=== PATIENT | male | born 1955 | race Caucasian/White ===

== ENCOUNTER 2017-12-03 17:00 | Outpatient (POV) ==
[2015-02-20 16:13] VITALS: BMI 36.3
== END 2017-12-03 18:00 ==
LOC: OUTPT 17:00
PROVIDERS: ATTEND Otolaryngology
DX: H91.90 Unspecified hearing loss, unspecified ear (principal)

== ENCOUNTER 2018-11-03 12:52 | Inpatient (IN) ==
[2018-11-03] MEDS ORDERED: NITROSTAT SL PRN (13:35)
[2018-11-03] MEDS ORDERED: ATROPINE SULFATE PFS IVP PRN (13:35)
[2018-11-03] MEDS ORDERED: VISTARIL INJ IM PRN (13:35)
[2018-11-03] MEDS ORDERED: TYLENOL PO PRN (13:35)
[2018-11-03] MEDS ORDERED: DECADRON 4 MG/ML SDV IM STA (13:40)
[2018-11-03] MEDS: XOPENEX 1.25 MG NEB SCH ×2 (14:02→19:30)
[2018-11-03] MEDS: ZITHROMAX PO SCH (14:22)
[2018-11-03] MEDS: SODIUM CHLORIDE 1,000 ML IV SCH (14:23)
[2018-11-03] MEDS: ROCEPHIN 1 GM in SODIUM CHLORIDE 50 ML IV SCH (14:24)
[2018-11-03 14:25] VITALS: BMI 34.7
[2018-11-03] MEDS: COREG PO SCH (17:17)
[2018-11-03] MEDS: GLUCOPHAGE PO SCH (17:18)
[2018-11-03] MEDS: HUMULIN R SUBCUT PRN (17:18)
[2018-11-03] MEDS: NEURONTIN PO SCH (20:33)
[2018-11-03] MEDS: LIPITOR PO SCH (20:33)
[2018-11-03] MEDS: LEVEMIR SUBCUT SCH (20:33)
[2018-11-03] MEDS: PROSCAR PO SCH (20:33)
[2018-11-03] MEDS: LEXAPRO PO SCH (20:33)
[2018-11-03] MEDS ORDERED: NON-FORMULARY MEDICATION (Metformin Hcl [Metformin Hcl] 1,000 MG) PO SCH (21:00)
[2018-11-04] MEDS: SODIUM CHLORIDE 1,000 ML IV SCH ×2 (03:37→19:08)
[2018-11-04] MEDS: XOPENEX 1.25 MG NEB SCH ×3 (04:50→20:24)
[2018-11-04] MEDS: SYNTHROID PO SCH (06:21)
[2018-11-04] MEDS: PROTONIX PO SCH (06:21)
[2018-11-04] MEDS: HUMULIN R SUBCUT PRN ×3 (06:23→17:11)
[2018-11-04] MEDS ORDERED: ASPIRIN EC PO SCH (08:00)
[2018-11-04] MEDS ORDERED: DECADRON 4 MG/ML SDV IM STA (08:07)
[2018-11-04] MEDS ORDERED: NON-FORMULARY MEDICATION (Lansoprazole [Prevacid] 30 MG) PO SCH (09:00)
[2018-11-04] MEDS ORDERED: VIT K1 PO SCH (09:00)
[2018-11-04] MEDS ORDERED: [UNRECOGNIZED DRUG - OTHER] PO SCH (09:00)
[2018-11-04] MEDS ORDERED: VITAMIN D3 PO SCH (09:00)
[2018-11-04] MEDS ORDERED: NON-FORMULARY MEDICATION (Multivit-Min/Fa/Lycopene/Lut [Centrum Silver Tablet] 1 TAB) PO SCH (09:00)
[2018-11-04] MEDS ORDERED: CALCIUM CARBONATE PO SCH (09:00)
[2018-11-04] MEDS ORDERED: CALCIUM CARB PO SCH (09:00)
[2018-11-04] MEDS ORDERED: VITAMIN D3 T PO SCH (09:00)
[2018-11-04] MEDS ORDERED: NON-FORMULARY MEDICATION (Duloxetine Hcl [Cymbalta] 60 MG) PO SCH (09:00)
--- NOTE | 2018-11-04 09:09 | PCM.PROG ---
Attending Provider: ATTENDING PROVIDER: Dr. LAMIN ASCENCIO DATE OF SERVICE: 11/04/18 SUBJECTIVE: This 62 year old WHITE/ M was hospitalized 11/03/18 with acute pneumonitis and flu type of syndrome with dehydration. He has continued to improve since yesterday. Hydration is better. Influenza A and B are negative. Chest x-ray negative. REVIEW OF SYSTEMS: CONSTITUTIONAL: No night sweats. No fatigue, malaise, lethargy. No fever or chills. HEENT: Eyes: No visual changes. No eye pain. No eye discharge. ENT: No runny nose. No epistaxis. No sinus pain. No odynophagia. No congestion. RESPIRATORY: Laryngitis type of symptoms with cough, no congestion. No hemoptysis. No shortness of breath. CARDIOVASCULAR: No angina symptoms. No CHF symptoms. No atypical chest pain for CAD. No palpitations. No orthopnea.. GASTROINTESTINAL: No abdominal pain. No nausea or vomiting. No diarrhea or constipation. No hematemesis. No hematochezia. GENITOURINARY: No urgency. No frequency. No dysuria. No hematuria. No obstructive symptoms. No discharge. No pain. No significant abnormal bleeding. MUSCULOSKELETAL: No musculoskeletal pain; no joint swelling. NEUROLOGICAL: Awake, alert, oriented to time, place and person. No headache. No neck pain. No syncope. No seizures. No dizziness. PSYCHIATRIC: Not anxious. No depression. No suicidal thoughts. No homicidal thoughts. SKIN: No rash. No lesions. No wounds. ENDOCRINE: No unexplained weight loss. No weight gain. HEMATOLOGIC/LYMPHATIC: No anemia. No purpura. No petechiae. No prolonged or excessive bleeding. No palpable lymph nodes. PHYSICAL EXAMINATION: GENERAL: The patient is awake, alert and oriented to time place and person, sitting in bed in no distress. VITAL SIGNS: Temperature 97.4 F, Pulse 78, Respiratory Rate 22, BP 144/87, Pulse Ox 95% HEENT: Head normocephalic, atraumatic. Eyes: Extraocular muscles are intact. Pupils are equal, round and reactive to light and accommodation. Ears: No lesions. Nose appeared normal. Throat: No exudate or erythema. NECK: Supple. No JVD, no carotid bruit. No lymphadenopathy or thyromegaly. LUNGS: Decreased breath sounds. Clear to auscultation. Percussion note normal. Chest symmetrical. HEART: S1, S2, no S3. No murmurs. No cyanosis or clubbing. No ascites. Pulses: Dorsalis pedis and posterior tibial pulses +1 to +2 both sides. ABDOMEN: Soft. Non-tender. Bowel sounds active. No CVA tenderness. No mass felt. EXTREMITIES: No edema. Full range of motion of all extremities, equal. NEUROLOGIC: No focal deficit. Cranial nerves II through XII are grossly intact. No headache, no double vision or headache. SKIN: Warm and dry. Intact. Turgor-normal. LYMPHATIC: No palpable lymph nodes/no lymphedema. MUSCULOSKELETAL: Normal joints with no swelling. Muscle tone is normal. LAB REVIEW: 11/04/18 05:11 11/04/18 05:11 11/04/18 05:11: Sodium 135.6, Potassium 4.26, Chloride 97.1 L, Carbon Dioxide 29.0, Anion Gap 13.76, BUN 15.7, Creatinine 0.69, Estimated GFR (MDRD) 116.00, BUN/Creatinine Ratio 22.75, Glucose 271.1 H, Calcium 9.26, Total Bilirubin 0.38 , AST 24.3, ALT 23.5, Alkaline Phosphatase 58.1, Total Protein 6.91, Albumin 3.96, Globulin 2.95, Albumin/Globulin Ratio 1.34 11/04/18 05:11: WBC 8.42, RBC 4.38 L, Hgb 13.4 L, Hct 39.2 L, MCV 89.5, MCH 30.6 , MCHC 34.2, RDW Coeff of [place] 11.7, Plt Count 283, Immature Gran % (Auto) 1.4, Neut % (Auto) 65.5, Lymph % (Auto) 22.3, Wheeler % (Auto) 9.4, Eos % (Auto) 0.7, Baso % (Auto) 0.7, Immature Gran # (Auto) 0.1, Neut # (Auto) 5.5, Lymph # (Auto ) 1.9, [place] # (Auto) 0.8, Eos # (Auto) 0.1, Baso # (Auto) 0.1 11/03/18 21:51: Total Creatine Kinase 85.5, Troponin I < 0.012 11/03/18 17:20: Urine Color Yellow, Urine Clarity Clear, Urine pH 6.0, Ur Specific Ponce 1.015, Urine Protein Trace, Urine Glucose (UA) 2+, Urine Ketones Negative, Urine Blood Negative, Urine Nitrite Negative, Urine Bilirubin Negative, Urine Urobilinogen 0.2, Ur Leukocyte Esterase Negative, Ur Squamous Epith Cells Not present, Urine Mucus Trace 11/03/18 13:50: Total Creatine Kinase 85.2, Troponin I < 0.012 11/03/18 13:50: Sodium 137.0, Potassium 4.34, Chloride 96.6 L, Carbon Dioxide 29.3, Anion Gap 15.44, BUN 16.9, Creatinine 0.85, Estimated GFR (MDRD) 91.00, BUN/Creatinine Ratio 19.88, Glucose 286.9 H, Calcium 9.42, Total Bilirubin 0.47 , AST 18.9, ALT 24.8, Alkaline Phosphatase 66.0, Total Protein 7.04, Albumin 4.12, Globulin 2.92, Albumin/Globulin Ratio 1.41 11/03/18 13:50: WBC 9.17, RBC 4.63 L, Hgb 14.3, Hct 41.6 L, MCV 89.8, MCH 30.9, MCHC 34.4, RDW Coeff of [place] 11.9, Plt Count 284, Immature Gran % (Auto) 1.1, Neut % (Auto) 62.6, Lymph % (Auto) 20.2, Wheeler % (Auto) 11.9 H, Eos % (Auto) 3.5 , Baso % (Auto) 0.7, Immature Gran # (Auto) 0.1, Neut # (Auto) 5.8, Lymph # ( Auto) 1.9, Wheeler # (Auto) 1.1, Eos # (Auto) 0.3, Baso # (Auto) 0.1 11/03/18 13:45: Influ A Molecular Assay Negative by naat, Influ B Molecular Assay Negative by naat ASSESSMENT: Please see below. 1. Flu syndrome 2. Bronchitis and Laryngitis type of symptoms. 3. Pleuritic pain right sided, cardiac markers are negative and telemetry showed sinus rhythm PLAN: 1. 1cc Decadron 2. Continue antibiotics 3. Education carried out about diabetes. Plan and coordination of the patient's care discussed in the presence of Film Projector Operator and nurse. SCRIBED BY: LESLYE SHEPHERD, Rehabilitation Services Aide scribed while in presence of service performed by Dr. LAMIN ASCENCIO on 11/04/18 ([id number])
[2018-11-04] MEDS: ROCEPHIN 1 GM in SODIUM CHLORIDE 50 ML IV SCH (09:29)
[2018-11-04] MEDS: CALCIUM 500 + VIT D 200 MG TABLET PO SCH (09:30)
[2018-11-04] MEDS: CYMBALTA PO SCH (09:31)
[2018-11-04] MEDS: MULTIVITAMIN TABLET PO SCH (09:31)
[2018-11-04] MEDS: ZITHROMAX PO SCH (09:32)
[2018-11-04] MEDS: ASPIRIN EC PO SCH (09:32)
[2018-11-04] MEDS: GLUCOPHAGE PO SCH ×2 (09:32→17:10)
[2018-11-04] MEDS: COREG PO SCH ×2 (09:33→17:11)
[2018-11-04] MEDS: LEVEMIR SUBCUT SCH ×2 (09:33→21:23)
--- NOTE | 2018-11-04 10:15 | DI ---
Exam: Two views of the chest. Comparison: 02/20/2015. Reason for exam: Short of air. FINDINGS: No pneumothorax, pleural effusion, or focal consolidation. The cardiac silhouette is not enlarged. The imaged osseous structures appear grossly unremarkable without acute fracture. Impression: No acute cardiopulmonary process.
--- NOTE | 2018-11-04 11:19 | HP ---
DATE OF SERVICE: 11/03/18 REASON FOR HOSPITALIZATION/HISTORY OF PRESENT ILLNESS: The patient is complaining of nasal congestion/coughing. He is taking Keflex and Prednisone with no improvement. Throat is swelling, fever, nauseated and clammy. PAST MEDICAL HISTORY: Sleep apnea Hypothyroidism Osteoporosis Skin cancer Fatty Liver Sleep Apnea Dyslipidemia Hypertension DJD spine Diabetes Mellitus PAST SURGICAL HISTORY: Back surgeries one in [place] and one in [place] REVIEW OF SYSTEMS: CONSTITUTIONAL: Fever, Fatigue. HEENT: No sinus drainage, no sore throat. RESPIRATORY: Cough, no congestion. CARDIOVASCULAR: Atypical chest pain for coronary artery disease. No angina, CHF symptoms, palpitations or shortness of breath. GASTROINTESTINAL: No melena or abdominal pain. No GERD. Nausea GENITOURINARY: No hematuria, no prostatism, no polyuria. WOUND NURSE: No blackout, Dizziness, no headache, no double vision. MUSCULOSKELETAL: Osteoarthritis pain, no joint swelling. ENDOCRINE: Weight loss of 14 pounds, no weight gain. SKIN: Not dry, no rash. PSYCHIATRIC: Not anxious, no depression, no suicidal thoughts, no homicidal thoughts. SOCIAL HISTORY: Marital Status:. Alcohol Usage: No. Tobacco Usage: No. FAMILY HISTORY: Father alive 83, hypertension and CAD Mother alive 82, hypertension and diabetes mellitus Brother one accident Sister one healthy MEDICATIONS: Levothyroxine 0.1mg daily Prevacid 30mg PO daily Vitamins PO daily Metformin 1000mg Po twice a day Citracal PO daily Calcium with vitamin D daily Neurontin 300mg twice a day Cymbalta 60mg PO daily Finasteride 5mg PO daily Levemir 90/60mg twice a day Coreg 6.25mg PO twice a day Aspirin 81mg PO daily Lipitor 20mg PO daily Lexapro 10mg PO daily Trulicity 0.75mg one dose weekly, Friday ALLERGIES: No known allergies. PHYSICAL EXAMINATION: V/S: Pulse 100, blood pressure 112/68, temperature 97.7, oxygen saturation 98% . Height 5'11, weight 253 with BMI 35.3. GENERAL APPEARANCE: Oriented times three. HEENT: Pale, Clam[place] NECK: No JVP, no bruits. RESPIRATORY: Decreased breath sounds. CARDIOVASCULAR: S1, S2, no S3, no murmurs,Tachy. No cyanosis, clubbing. No ascites. GI/ABDOMEN: No tenderness. Bowel sounds are active. EXTREMITIES: No edema, pulses +1, equal. WOUND NURSE: Deep tendon reflexes, sensory, motor and gait all normal. RECTAL: 11/23 (0.2), Colonoscopy 2008 refused repeat. ASSESSMENT: 1. Acute pneumonitis 2. Dehydration 3. Right pleuritic pain 4. Diabetes mellitus type 2 A1c 11.2 on 09/26 5. Hypertension 6. Dyslipidemia 7. BPH 8. Obesity 9. DJD spine 10.Hypothyroidism 11.Osteoporosis 12.Skin cancer (nose) 13.Sleep apnea- CPAP 14.Fatty Liver 15.Noncompliant 16.Status post back surgery -1992 [place] and 1998 [place]. PLAN: 1. Admit 2. Routine telemetry orders 3. CBC and CMP now and daily 4. Normal saline IV at 75cc an hour 5. Chest x-ray 6. Rapid Flu A &B 7. Rapid strep 8. Diabetic diet discussed 9. Rocephin 1gram IV daily 10.Zithromax 500mg Po daily times three days 11.Xopenex 1.25mg three times a day scheduled NEB treatment 12.Sputum for culture 13.1cc Decadron IM (?) 14.Sliding scale coverage 15.Continue home medications. TIME SPENT: More than 70 minutes. MTDD
[2018-11-04] MEDS: NEURONTIN PO SCH (21:22)
[2018-11-04] MEDS: LEXAPRO PO SCH (21:23)
[2018-11-04] MEDS: PROSCAR PO SCH (21:23)
[2018-11-04] MEDS: LIPITOR PO SCH (21:23)
[2018-11-05] MEDS: XOPENEX 1.25 MG NEB SCH ×3 (04:52→20:38)
[2018-11-05] MEDS: SYNTHROID PO SCH (06:02)
[2018-11-05] MEDS: PROTONIX PO SCH (06:02)
[2018-11-05] MEDS: SODIUM CHLORIDE 1,000 ML IV SCH (08:18)
[2018-11-05] MEDS: GLUCOPHAGE PO SCH ×2 (09:55→16:57)
[2018-11-05] MEDS: ASPIRIN EC PO SCH (09:55)
[2018-11-05] MEDS: CALCIUM 500 + VIT D 200 MG TABLET PO SCH (09:55)
[2018-11-05] MEDS: CYMBALTA PO SCH (09:55)
[2018-11-05] MEDS: ZITHROMAX PO SCH (09:55)
[2018-11-05] MEDS: COREG PO SCH ×2 (09:56→16:54)
[2018-11-05] MEDS: ROCEPHIN 1 GM in SODIUM CHLORIDE 50 ML IV SCH (09:56)
[2018-11-05] MEDS: MULTIVITAMIN TABLET PO SCH (09:56)
[2018-11-05] MEDS: LEVEMIR SUBCUT SCH ×2 (10:00→21:21)
--- NOTE | 2018-11-05 10:02 | PCM.PROG ---
Attending Provider: ATTENDING PROVIDER: Dr. LAMIN ASCENCIO DATE OF SERVICE: 11/05/18 SUBJECTIVE: This 62 year old WHITE/ M was hospitalized 11/03/18 with acute pneumonitis, dehydration and pleuritic pain. Laryngitis continues to improve. Does not have any pleuritic pain. Voice has improved. Other problem is shortness of breath with mild exertion which worsening could be related to BMI of 32 and sedentary lifestyle. The patient has multiple medical problems such as diabetes mellitus, dyslipidemia, hypertension and sedentary lifestyle. The patient will have an echo to evaluate LV function, PFT and carotid scan. Stress echo sestamibi could be done as an outpatient. REVIEW OF SYSTEMS: CONSTITUTIONAL: No night sweats. No fatigue, malaise, lethargy. No fever or chills. HEENT: Eyes: No visual changes. No eye pain. No eye discharge. ENT: No runny nose. No epistaxis. No sinus pain. No odynophagia. No congestion. RESPIRATORY: No cough, no congestion. No hemoptysis. No shortness of breath. CARDIOVASCULAR: No angina symptoms. No CHF symptoms. No atypical chest pain for CAD. No palpitations. No orthopnea.. GASTROINTESTINAL: No abdominal pain. No nausea or vomiting. No diarrhea or constipation. No hematemesis. No hematochezia. GENITOURINARY: No urgency. No frequency. No dysuria. No hematuria. No obstructive symptoms. No discharge. No pain. No significant abnormal bleeding. MUSCULOSKELETAL: No musculoskeletal pain; no joint swelling. NEUROLOGICAL: Awake, alert, oriented to time, place and person. No headache. No neck pain. No syncope. No seizures. No dizziness. PSYCHIATRIC: Not anxious. No depression. No suicidal thoughts. No homicidal thoughts. SKIN: No rash. No lesions. No wounds. ENDOCRINE: No unexplained weight loss. No weight gain. HEMATOLOGIC/LYMPHATIC: No anemia. No purpura. No petechiae. No prolonged or excessive bleeding. No palpable lymph nodes. PHYSICAL EXAMINATION: GENERAL: The patient is awake, alert and oriented, lying in bed in no distress. VITAL SIGNS: Temperature 97.9 F, Pulse 67, Respiratory Rate 18, BP 137/77, Pulse Ox 95% HEENT: Head normocephalic, atraumatic. Eyes: Extraocular muscles are intact. Pupils are equal, round and reactive to light and accommodation. Ears: No lesions. Nose appeared normal. Throat: No exudate or erythema. NECK: Supple. No JVD, no carotid bruit. No lymphadenopathy or thyromegaly. LUNGS: Clear to auscultation. Percussion note normal. Chest symmetrical. HEART: S1, S2, no S3. No murmurs. No cyanosis or clubbing. No ascites. Pulses: Dorsalis pedis and posterior tibial pulses +1 to +2 both sides. ABDOMEN: Soft. Non-tender. Bowel sounds active. No CVA tenderness. No mass felt. EXTREMITIES: No edema. Full range of motion of all extremities, equal. NEUROLOGIC: No focal deficit. Cranial nerves II through XII are grossly intact. No headache, no double vision or headache. SKIN: Warm and dry. Intact. Turgor-normal. LYMPHATIC: No palpable lymph nodes/no lymphedema. MUSCULOSKELETAL: Normal joints with no swelling. Muscle tone is normal. LAB REVIEW: 11/05/18 04:30 11/05/18 04:30 11/05/18 04:30: Sodium 138.5, Potassium 4.07, Chloride 98.3, Carbon Dioxide 32.2 H, Anion Gap 12.07, BUN 14.7, Creatinine 0.78, Estimated GFR (MDRD) 101.00 , BUN/Creatinine Ratio 18.84, Glucose 140.2 H D, Calcium 8.94, Total Bilirubin 0.22, AST 21.6, ALT 22.8, Alkaline Phosphatase 48.6 L, Total Protein 6.51, Albumin 3.67, Globulin 2.84, Albumin/Globulin Ratio 1.29 11/05/18 04:30: WBC 8.18, RBC 4.24 L, Hgb 12.7 L, Hct 38.3 L, MCV 90.3, MCH 30.0 , MCHC 33.2, RDW Coeff of [place] 11.7, Plt Count 261, Immature Gran % (Auto) 2.0, Neut % (Auto) 56.8, Lymph % (Auto) 29.7, [place] % (Auto) 9.5, Eos % (Auto) 1.3, Baso % (Auto) 0.7, Immature Gran # (Auto) 0.2, Neut # (Auto) 4.6, Lymph # (Auto ) 2.4, [place] # (Auto) 0.8, Eos # (Auto) 0.1, Baso # (Auto) 0.1 ASSESSMENT: Please see below. 1. Pneumonia 2. Bronchitis 3. Pleuritic pain seems to be improved with present management. PLAN: 1. Discharge home on appropriate antibiotics 2. Steroids. 3. Education about Diabetes Mellitus carried out. 4. Advised to get eyes checked every yearly. Plan and coordination of the patient's care discussed in the presence of Box Toe Buffer and nurse. SCRIBED BY: Bhaskar CRUZ scribed while in presence of service performed by Dr. LAMIN ASCENCIO on 11/05/18 ([id number])
--- NOTE | 2018-11-05 11:53 | US ---
EXAM: Bilateral carotid artery Doppler Technique: Multiple sonographic images through the bilateral internal carotid arteries were obtained . Color duplex Doppler was used to interrogate vascular flow. Findings: The right ICA peak systolic velocity is within normal limits measuring 88 cm/sec. The right ICA/cca PSV ratio is normal at 1.2. The right vertebral artery is patent and demonstrates antegrade flow. G ray scale images demonstrate mild to moderate plaque buildup within the right internal carotid artery . The left ICA peak systolic velocity is within normal limits measuring 114 cm/sec. The left ICA/cca P SV ratio is normal at 1.2. The left vertebral artery is patent and demonstrates antegrade flow. Gra y scale images demonstrate mild to moderate plaque buildup within the left internal carotid artery Impression: No significant hemodynamic stenosis of the bilateral internal carotid arteries
[2018-11-05] MEDS: HUMULIN R SUBCUT PRN (12:33)
[2018-11-05] MEDS: NEURONTIN PO SCH (21:20)
[2018-11-05] MEDS: LIPITOR PO SCH (21:20)
[2018-11-05] MEDS: LEXAPRO PO SCH (21:21)
[2018-11-05] MEDS: PROSCAR PO SCH (21:21)
[2018-11-06] MEDS: XOPENEX 1.25 MG NEB SCH (04:33)
[2018-11-06 05:20] VITALS: BP 107/48; TEMP 97.3
[2018-11-06] MEDS: SYNTHROID PO SCH (05:45)
[2018-11-06] MEDS: PROTONIX PO SCH (05:46)
[2018-11-06] MEDS: HUMULIN R SUBCUT PRN (06:26)
[2018-11-06] MEDS ORDERED: DOBUTAMINE 500 MG-D5W 250 ML 250 ML IV ONE (07:50)
[2018-11-06] MEDS ORDERED: ATROPINE SULFATE PFS IVP STA (08:45)
--- NOTE | 2018-11-06 09:35 | DOBSTECHST ---
Ordering Physician: DR. LAMIN ASCENCIO Date of Test: 11/06/18 Reason for Examination: SOB, HYPERTENSION, DM, PVC Smoking History: NONE Height: 71" Weight: 285 LBS Current Medications: LEXAPRO, LIPITOR, LEVEMIR, ASA, CYMBALTA, TRULICITY, COREG , PREVACID, NEURONTIN, FINASTERIDE, METFORMIN, SYNTHROID Target Heart Rate: 133/157 S-T Segment Stage Time HR BPM BP MMHG Rhythm +/- Elevation Depression Symptoms Control Sitting 60 132/68 SR X NONE Dobutamine 250mg/D5W 5cmg/KG/mn 10cmg/KG/mn 3:00 76 140/64 SR X NONE 15cmg/KG/mn 2:00 68 SR X NONE 20cmg/KG/mn 2:00 73 140/70 SR X NONE 25cmg/KG/mn 2:00 71 150/68 SR X NONE 30cmg/KG/mn 2:00 70 SR X .25 ATROPINE 35cmg/KG/mn :14 162 148/58 SR X NONE 40cmg/KG/mn 6 MIN POST INFUSION z 129 138/60 SR X NONE 15 MIN POST INFUSION z 100 SR X NONE DURATION OF INFUSION 12:14 MAXIMUM HEART RATE REACHED 163 100% OXYGEN SATURATION ON ROOM AIR WITH DOBUTAMINE INFUSION Interpretation: 1. TEST NEGATIVE FOR ISCHEMIC ST-T WAVE 2. NO CHEST PAIN OR DISCOMFORT 3. NORMAL LEFT VENTRICULAR CONTRACTILITY RESTING AND WITH DOBUTAMINE INFUSION SESTAMIBI TO FOLLOW MTDD
[2018-11-06] MEDS: ROCEPHIN 1 GM in SODIUM CHLORIDE 50 ML IV SCH (10:05)
[2018-11-06] MEDS: GLUCOPHAGE PO SCH (10:05)
[2018-11-06] MEDS: CYMBALTA PO SCH (10:05)
[2018-11-06] MEDS: MULTIVITAMIN TABLET PO SCH (10:06)
[2018-11-06] MEDS: ASPIRIN EC PO SCH (10:06)
[2018-11-06] MEDS: CALCIUM 500 + VIT D 200 MG TABLET PO SCH (10:06)
[2018-11-06] MEDS: COREG PO SCH (10:06)
[2018-11-06] MEDS: LEVEMIR SUBCUT SCH (10:06)
--- NOTE | 2018-11-06 10:09 | NM ---
Cardiac Stress Test HISTORY: Shortness of breath, hypertension, PVC's, diabetes mellitus. COMPARISON: 03/01/2015. TECHNIQUE: Resting: The patient was injected with 11.5 millicuries of 99m technetium Sestamibi (Cardiolite) int ravenously after which a "resting" SPECT study of the heart was performed. Stress: The patient was stressed pharmacologically with to be in the and at the appropriate time inj ected with 32.5 millicuries of 99m technetium Sestamibi (Cardiolite) after which a "stress" SPECT snow dy of the heart was performed. Gated images of the heart were also obtained to assess wall motion an d calculate ejection fraction. For details of the stress protocol employed, reference is made to the separate report of the performing physician. FINDINGS: The stress perfusion images demonstrate a generally uniform distribution of activity in th e left ventricular myocardium. There is a small region of decreased activity in the inferolateral wa ll which appears fixed. The resting perfusion images demonstrate no evidence of significant redistri bution/ischemia. The left ventricular ejection fraction (LVEF) is 54%. The previous ejection fraction was 58%. IMPRESSION: 1. Left ventricular myocardial perfusion demonstrates no evidence of significant reperfusion / ische adrienne.. 2. The left ventricular ejection fraction (LVEF) is 54%. The previous ejection fraction was 58%.
--- NOTE | 2018-11-06 12:04 | CM.DICTOOL ---
ADMISSION: 11/03/18 12:52 DISCHARGE: NOVEMBER 06, 2018 DATE OF SERVICE: 11/06/18 FINAL DIAGNOSIS ACUTE PNEUMONITIS DEHYDRATION PLEURITIC PAIN HYPERTENSION DIABETES MELLITUS (A1C 11.2 IN SEP, 2018) NON COMPLIANCE OF DIET, LIFESTYLE AND MEDICATIONS HYPOTHYROID GERD SLEEP APNEA (DOES NOT WEAR C-PAP) DEPRESSION FATTY LIVER DJD SPINE OSTEOPOROSIS SKIN CANCER (NOSE) PVC'S LUMBAR SURGERY X 2 PROSTATE SURGERY STRESS/REST SESTAMIBI 11/06/2018: NO EVIDENCE OF ISCHEMIA PFT 11/05/2018: MODERATE COPD/RESTRICTIVE LUNG DISEASE LAST VITALS Temp Pulse Resp BP Pulse Ox 97.3 F L 72 18 107/48 L 96 11/06/18 05:19 11/06/18 05:19 11/06/18 05:19 11/06/18 05:19 11/06/18 05:19 TAKE THESE MEDICATIONS AT HOME Aspirin (Aspirin Ec) 81 mg PO DAILYWM [facility] Last Admin: 11/06/18 10:06 Dose: 81 mg Atorvastatin Calcium (Lipitor) 20 mg PO BEDTIME [facility] Last Admin: 11/05/18 21:20 Dose: 20 mg Calcium/Vitamin D (Calcium 500 + Vit D 200 Mg Tablet) 1 each PO DAILY [facility] Last Admin: 11/06/18 10:06 Dose: 1 each Carvedilol (Coreg) 6.25 mg PO BIDWM [facility] Last Admin: 11/06/18 10:06 Dose: 6.25 mg Duloxetine HCl (Cymbalta) 60 mg PO DAILY [facility] Last Admin: 11/06/18 10:05 Dose: 60 mg Escitalopram Oxalate (Lexapro) 10 mg PO BEDTIME [facility] Last Admin: 11/05/18 21:21 Dose: 10 mg Finasteride (Proscar) 5 mg PO BEDTIME [facility] Last Admin: 11/05/18 21:21 Dose: 5 mg Gabapentin (Neurontin) 600 mg PO BEDTIME [facility] Last Admin: 11/05/18 21:20 Dose: 600 mg Insulin Detemir (Levemir) 90 unit SUBCUT BID [facility] Last Admin: 11/06/18 10:06 Dose: 90 unit Levothyroxine Sodium (Synthroid) 100 mcg PO QDAC [facility] Last Admin: 11/06/18 05:45 Dose: 100 mcg Metformin HCl (Glucophage) 1,000 mg PO BIDWM [facility] Last Admin: 11/06/18 10:05 Dose: 1,000 mg Multivitamins (Multivitamin Tablet) 1 tab PO DAILY [facility] Last Admin: 11/06/18 10:06 Dose: 1 tab Nitroglycerin (Nitrostat) 0.4 mg SL Q5MIN X 3 DOSES PRN PRN Reason: Chest Pain Non-Formulary Medication (Dulaglutide [Trulicity]) 0.75 mg SQ WEEKLY [facility] Lansoprazole (Prevacid) 30 mg PO QDAC [facility] Last Admin: 11/06/18 05:46 Dose: 40 mg Omnicef 300 mg PO BID for 7 days Prednisone 10 mg BID for 5 days ALLERGIES No Known Allergies Allergy (Verified 02/20/15 16:40) DISCONTINUED MEDICATIONS None NEW PRESCRIPTIONS: OMNICEF 300 MG BID FOR 7 DAYS PREDNISONE 10 MG BID FOR 5 DAYS SMOKING: NOT APPLICABLE DISEASE SPECIFIC EDUCATION: MEDICATIONS ACTIVITY WEIGHT LOSS LAB REVIEW: 11/06/18 05:35 11/06/18 05:35 11/06/18 05:35: TSH 3.200 11/06/18 05:35: Free T4 1.31 11/06/18 05:35: Sodium 137.8, Potassium 4.09, Chloride 95.5 L, Carbon Dioxide 34.2 H, Anion Gap 12.19, BUN 13.8, Creatinine 0.88, Estimated GFR (MDRD) 87.00, BUN/Creatinine Ratio 15.68, Glucose 224.8 H, Calcium 8.97, Total Bilirubin 0.27 , AST 31.5, ALT 28.8, Alkaline Phosphatase 55.4 L, Total Protein 6.32, Albumin 3.53, Globulin 2.79, Albumin/Globulin Ratio 1.26 11/06/18 05:35: WBC 8.16, RBC 4.27 L, Hgb 12.8 L, Hct 39.3 L, MCV 92.0, MCH 30.0 , MCHC 32.6, RDW Coeff of [place] 11.9, Plt Count 252, Immature Gran % (Auto) 2.3, Neut % (Auto) 50.9, Lymph % (Auto) 32.4, [place] % (Auto) 9.6, Eos % (Auto) 3.6, Baso % (Auto) 1.2, Immature Gran # (Auto) 0.2, Neut # (Auto) 4.2, Lymph # (Auto ) 2.6, [place] # (Auto) 0.8, Eos # (Auto) 0.3, Baso # (Auto) 0.1 PLAN: DISCHARGE HOME WITH SPOUSE DIET: CONSISTENT CARBOHYDRATES ACTIVITY: GRADUALLY RESUME TOLERATED. ENCOURAGED TO AMBULATE SHORT DISTANCES SEVERAL TIMES DAILY CONTINUE TO DO ACCU-CHECKS AT LEAST 2 TIMES DAILY AN APPOINTMENT IS SCHEDULED WITH DR. ASCENCIO/JATIN SOLO APRN ON NOVEMBER 13 AT 8: 45 AM MR. MADRID HAS REQUESTED A DNR STATUS IS ALERT AND ORIENTED X 3. HE IS INDEPENDENT WITH ALL ACTIVITIES OF DAILY LIVING. MR. MADRID LIVES WITH HIS , ZENAIDA AND THEY ARE AGREEABLE AND EAGER FOR HIS RETURN HOME. MR. MADRID IS AMBULATORY PER SELF AND DOES NOT REQUIRE AN ASSISTIVE DEVICE FOR AMBULATION. HE FEEDS HIMSELF AND HAS A GOOD APPETITE FOR ALL MEALS WITH 100% INTAKES. MR. MADRID IS CONTINENT OF BOWEL AND BLADDER. HE OFFERS NO COMPLAINTS TODAY AND AGAIN, HE IS EAGER TO RETURN HOME. SKIN TURGOR HAS IMPROVED. SKIN IS FREE OF DECUBITUS ULCERS, RASHES OR IRRITATION. LAMIN ASCENCIO MD JATIN SOLO APRN
--- NOTE | 2018-11-09 07:51 | PN ---
DATE OF SERVICE: 11/05/18 SUBJECTIVE: The patient was seen and examined this morning. He was stable. His bronchitis and pleuritic type of symptoms had improved remarkably. The patient underwent echocardiogram which showed LV contractility with LVH and enlarged LA cavity. The patient was supposed to be scheduled for stress sestamibi as an outpatient but the patient developed ventricular bigeminy. Blood pressure was noted to be systolic close to 160 so the discharge was cancelled. The patient was kept for further observation and telemetry monitoring. The patient has shortness of breath on minimal exertion with multiple coronary artery disease risk factors like diabetes mellitus, dyslipidemia, BMI over 30, sedentary lifestyle, hypertension and noncompliance. The patient needs further work up for coronary artery disease. TIME SPENT: More than 30 minutes. Plan and coordination of the patient's care discussed in the presence of nurse. SILVIA
--- NOTE | 2018-11-09 08:03 | PN ---
DATE OF SERVICE: 11/06/18 SUBJECTIVE: The patient was seen and examined with Nurse Practitioner. Today stress echo sestamibi was negative for ischemia. Echo showed LVH with mildly enlarged LA cavity but sugars are running high uncontrolled because of patient's choices. Educated about diabetes mellitus in detail with it's extensive complications involving different body organs. The patient is intelligent. PROGNOSIS: Not good unless the patient changes the lifestyle and follows the instructions and takes the medication on regular basis. The patient has multiple risk factors for coronary artery disease and CVA, all discussed with the patient. TIME SPENT: More than 30 minutes. Plan and coordination of the patient's care discussed in the presence of nurse. SILVIA
--- NOTE | 2018-11-09 08:04 | PN ---
11/03/18: Level 5 11/04/18: Intermediate 11/05/18: Intermediate 11/06/18: D as in discharge MTDD
--- NOTE | 2018-11-09 13:24 | DS ---
DATE OF SERVICE: 11/06/18 FINAL DIAGNOSIS: 1. ACUTE PNEUMONITIS 2. DEHYDRATION 3. PLEURITIC PAIN 4. HYPERTENSION 5. DIABETES MELLITUS (A1C 11.2 IN SEP, 2018) 6. NON COMPLIANCE OF DIET, LIFESTYLE AND MEDICATIONS 7. HYPOTHYROID 8. GERD 9. SLEEP APNEA (DOES NOT WEAR C-PAP) 10.DEPRESSION 11.FATTY LIVER 12.DJD SPINE 13.OSTEOPOROSIS 14.SKIN CANCER (NOSE) 15.PVC'S 16.LUMBAR SURGERY X 2 17.PROSTATE SURGERY 18.STRESS/REST SESTAMIBI 11/06/2018: 19.NO EVIDENCE OF ISCHEMIA 20.PFT 11/05/2018: 21.MODERATE COPD/RESTRICTIVE LUNG DISEASE LAST VITALS Temp Pulse Resp BP Pulse Ox 97.3 F L 72 18 107/48 L 96 11/06/18 05:19 11/06/18 05:19 11/06/18 05:19 11/06/18 05:19 11/06/18 05:19 DISCHARGE INSTRUCTIONS: CONTINUE TO DO ACCU-CHECKS AT LEAST 2 TIMES DAILY. AN APPOINTMENT IS SCHEDULED WITH DR. ASCENCIO/JATIN SOLO APRN ON NOVEMBER 13 AT 8:45 AM. MR. MADRID HAS REQUESTED A DNR STATUS. DISCHARGE HOME WITH SPOUSE. TAKE THESE MEDICATIONS AT HOME: Aspirin (Aspirin Ec) 81 mg PO DAILYWM [facility] Atorvastatin Calcium (Lipitor) 20 mg PO BEDTIME [facility] Calcium/Vitamin D (Calcium 500 + Vit D 200 Mg Tablet) 1 each PO DAILY [facility] Carvedilol (Coreg) 6.25 mg PO BIDWM [facility] Duloxetine HCl (Cymbalta) 60 mg PO DAILY [facility] Escitalopram Oxalate (Lexapro) 10 mg PO BEDTIME [facility] Finasteride (Proscar) 5 mg PO BEDTIME [facility] Gabapentin (Neurontin) 600 mg PO BEDTIME [facility] Insulin Detemir (Levemir) 90 unit SUBCUT BID [facility] Levothyroxine Sodium (Synthroid) 100 mcg PO QDAC [facility] Metformin HCl (Glucophage) 1,000 mg PO BIDWM [facility] Multivitamins (Multivitamin Tablet) 1 tab PO DAILY [facility] Nitroglycerin (Nitrostat) 0.4 mg SL Q5MIN X 3 DOSES PRN Non-Formulary Medication (Dulaglutide [Trulicity]) 0.75 mg SQ WEEKLY [facility] Lansoprazole (Prevacid) 30 mg PO QDAC [facility] Omnicef 300 mg PO BID for 7 days Prednisone 10 mg BID for 5 days ALLERGIES: No Known Allergies Allergy (Verified 02/20/15 16:40) DISCONTINUED MEDICATIONS: None NEW PRESCRIPTIONS: OMNICEF 300 MG BID FOR 7 DAYS PREDNISONE 10 MG BID FOR 5 DAYS DIET: CONSISTENT CARBOHYDRATES ACTIVITY: GRADUALLY RESUME TOLERATED. ENCOURAGED TO AMBULATE SHORT DISTANCES SEVERAL TIMES DAILY SMOKING: NOT APPLICABLE DISEASE SPECIFIC EDUCATION: MEDICATIONS ACTIVITY WEIGHT LOSS HOSPITAL COURSE: This is a white male who is a direct admit from our office. He presented with fever, cough and congestion. He was pale and clammy. He was admitted with acute pneumonitis. He had pleuritic type pain and elevated renal function indicating dehydration. He is a diabetic and has been uncontrolled due to noncompliance with diet and lifestyle. Chest x-ray showed no pneumonia. He was placed on Rocephin 1 gram IV daily along with Zithromax 500mg PO daily. Flu A and B were both negative. He was started on Xopenex NEB treatments three times a day. Oxygen 1-2 liters at first. He used initially. Over the course of several days he is slowly improved. Kidney is improved with IV fluids on normal saline. Yesterday he did experience some PVC's on the telemetry. He just complained of some slight dizziness otherwise was asymptomatic. An echo and stress echo was done today by Dr. Ascencio which was normal. Carotid scan was also done which was also normal. Education has been given to him regarding the importance of a diabetic diet and the need to improve his A1c. He will go home on Omnicef 300mg twice a day for 7 days and Prednisone 10mg twice a day for 5 days. He has been eating well. Up and about walking. He is discharged home in stable condition. TIME SPENT: More than 60 minutes. [facility]
--- NOTE | 2018-11-09 14:43 | ECHOSTRESS ---
Date of Exam: 11/06/18 Ordering Physician: DR. LAMIN ASCENCIO Reason for Echo: SOB, HTN, PVC'S, DM, DOBUTAMINE STRESS--NO ISCHEMIA M-Mode Normal Adult Results LV Dimensions Normal Adult Results AoV Opening excursions >1.6 LVEDD-base- 3.5-5.8 Ao root dimensions 2.0-3.7 LVESD-base- 3.1-4.6 L. Atrium dimensions 1.9-3.8 Post. Wall thickness 0.8-1.1 IV septum (thickness) 0.7-1.2 Post. Wall excursion 0.72-1.3 Septal motion Systolic motion R. Ventricular cavity 1.5-2.0 LVEF 60% Paradoxical septal wall motion 2-D: NORMAL LEFT VENTRICULAR CONTRACTILITY--RESTING AND WITH DOBUTAMINE INFUSION M-MODE: MV: AV: TV: PV: CHAMBER SIZE: WALL MOTION: NORMAL LEFT VENTRICULAR CONTRACTILITY--RESTING AND WITH DOBUTAMINE INFUSION PERICARDIUM: INTERPRETATION: 1. NORMAL LEFT VENTRICULAR CONTRACTILITY--RESTING AND WITH DOBUTAMINE INFUSION MTDD
--- NOTE | 2018-11-09 14:48 | ECHO2D ---
Date of Exam:11/05/18 Ordering Physician: DR. LAMIN ASCENCIO Room #: [id number] Reason for Echo: SOB, DM--UNCONTROLLED, DYSLIPIDEMIA, HTN, PVC'S M-Mode Normal Adult Results LV Dimensions Normal Adult Results AoV Opening excursions >1.6 >1.6 LVEDD-base- 3.5-5.8 4.7 Ao root dimensions 2.0-3.7 3.6 LVESD-base- 3.1-4.6 L. Atrium dimensions 1.9-3.8 4.1 Post. Wall thickness 0.8-1.1 1.0 IV septum (thickness) 0.7-1.2 1.2 Post. Wall excursion 0.72-1.3 NORMAL Septal motion NORMAL Systolic motion R. Ventricular cavity 1.5-2.0 NORMAL LVEF 60% 64% Paradoxical septal wall motion NORMAL 2-D : 2-D M Mode Echocardiogram was performed using apical four chamber and left parasternal long and short axis views. Mitral, tricuspid and aortic valves appear to be normal. Contractility of the left ventricle seems to be normal, so is the cavity size. Mildly Enlarged Left atrial cavity. Aortic root appears to be normal. There is no pericardial effusion. There is no thrombus noted in the left ventricular or left aortic cavity. No mitral valve prolapse noted. M-MODE: MV: NORMAL AV: NORMAL TV: NORMAL PV: CHAMBER SIZE: MILDLY ENLARGED LEFT ATRIAL CAVITY WALL MOTION: NORMAL PERICARDIUM: NORMAL INTERPRETATION: 1. BORDERLINE LEFT VENTRICULAR HYPERTROPHY 2. MILDLY ENLARGED LEFT ATRIAL CAVITY 3. NORMAL VALVES 4. NORMAL LEFT VENTRICULAR CONTRACTILITY MTDD
[2018-11-10] MEDS ORDERED: NON-FORMULARY MEDICATION (Dulaglutide [Trulicity] 0.75 MG) SQ SCH (09:00)
== END 2018-11-06 13:15 | disposition home or self-care (01) | DRG 203 ==
LOC: MEDSURG B 12:52
PROVIDERS: ADMIT Internal Medicine; ATTEND Internal Medicine
DX: J40 Bronchitis, not specified as acute or chronic (principal); J11.1 Influenza due to unidentified influenza virus with other respiratory manifestations; R07.81 Pleurodynia; I10 Essential (primary) hypertension; E11.9 Type 2 diabetes mellitus without complications; E03.9 Hypothyroidism, unspecified; K21.9 Gastro-esophageal reflux disease without esophagitis; G47.30 Sleep apnea, unspecified; F32.9 Major depressive disorder, single episode, unspecified; M47.9 Spondylosis, unspecified; K76.0 Fatty (change of) liver, not elsewhere classified; M81.0 Age-related osteoporosis without current pathological fracture; E78.5 Hyperlipidemia, unspecified; N40.0 Benign prostatic hyperplasia without lower urinary tract symptoms; E66.9 Obesity, unspecified; Z91.19 Patient's noncompliance with other medical treatment and regimen
CPT/HCPCS: 36415; 80053; 81001; 82550; 82962; 84439; 84443; 84484; 85025; 87070; 87502; 87651; 93005; 93010; 94640

== ENCOUNTER 2019-01-27 08:56 | Outpatient (POV) | END 2019-01-27 17:00 | LOC: OUTPT 08:56 | PROVIDERS: ATTEND Otolaryngology | DX: H91.90 Unspecified hearing loss, unspecified ear (principal) | CPT/HCPCS: 92557; 92567 ==

== ENCOUNTER 2022-09-03 12:22 | Inpatient (IN) ==
[2022-09-03 13:01] LABS: MOLECULAR FLU A NEGATIVE BY NAAT (NEGATIVE); MOLECULAR FLU B NEGATIVE BY NAAT (NEGATIVE)
[2022-09-03 13:34] LABS: SARS COV-2 RNA RAPID NAAT NEGATIVE (NEGATIVE)
[2022-09-03] MEDS ORDERED: ATROPINE SULFATE PFS IVP PRN (14:19)
[2022-09-03] MEDS ORDERED: NITROSTAT SL PRN (14:19)
[2022-09-03] MEDS ORDERED: TYLENOL PO PRN (14:19)
[2022-09-03] MEDS ORDERED: LASIX IVP ONE (14:21)
[2022-09-03 14:30] VITALS: BMI 38.2
[2022-09-03 14:38] LABS: BASOPHILS # (AUTO) 0.1 K/uL (0-0.2); BASOPHILS % (AUTO) 0.8 % (0.0-3.0); EOSINOPHILS # (AUTO) 0.4 K/ul (0.0-0.7); EOSINOPHILS % (AUTO) 5.3 % (0.0-7.0); HEMATOCRIT 35.8 % (42.0-52.0); IMMATURE GRANULOCYTE % (AUTO) 0.4 % (0.0-5.0); LYMPHOCYTES # (AUTO) 1.2 K/uL (0.60-3.4); LYMPHOCYTES % (AUTO) 16.3 (10.0-50.0); MEAN CORPUSCULAR HEMOGLOBIN 31.5 pg (27.0-31.0); MEAN CORPUSCULAR HGB CONC 33.5 (31.8-35.4); MONOCYTES # (AUTO) 0.8 K/uL (0.4-2.0); NEUTROPHILS # (AUTO) 4.8 K/ul (2.0-6.9); NEUTROPHILS % (AUTO) 66.2 % (42.2-75.2); PLATELET COUNT 197 10^3/uL (140-440); RDW COEFFICIENT OF VARIATION 12.3 % (11.6-14.8); RED BLOOD COUNT 3.81 10^6/ul (4.70-6.10); WHITE BLOOD COUNT 7.29 K/ul (4.2-10.2)
[2022-09-03 14:52] LABS: ALANINE AMINOTRANSFERASE 40.3 U/L (0-50); ALBUMIN 4.21 g/dL (3.5-5.0); ALKALINE PHOSPHATASE 61.9 U/L (56-119); BILIRUBIN,TOTAL 0.47 mg/dL (0.2-1.3); BLOOD UREA NITROGEN 12.3 mg/dL (9-20); CALCIUM 9.19 mg/dL (8.4-10.2); CARBON DIOXIDE 31.7 mmol/L (22-30.0); CHLORIDE 100.1 mmol/L (98-107); CREATINE KINASE 128.3 U/L (55-170); CREATININE 1.09 mg/dL (0.60-1.10); GLUCOSE 246.4 mg/dL (74-106); POTASSIUM 5.03 mmol/L (3.5-5.1); SODIUM 136.2 mmol/L (134.5-145); TOTAL PROTEIN 6.89 g/dL (6.3-8.2)
[2022-09-03 15:05] LABS: TROPONIN I < 0.012 ng/ml (0.0000-0.120)
[2022-09-03 15:57] LABS: BILIRUBIN,URINE Negative (NEGATIVE); CLARITY,URINE Clear (CLEAR); COLOR,URINE Yellow (YELLOW); GLUCOSE, URINE (UA) 2+ (NEGATIVE); KETONES,URINE Negative (NEGATIVE); LEUKOCYTE ESTERASE ,URINE Negative (NEGATIVE); NITRITE,URINE Negative (NEGATIVE); PROTEIN,URINE Negative (NEGATIVE); URINE, BLOOD Negative (NEGATIVE); UROBILINOGEN,URINE 0.2 (0.2)
--- NOTE | 2022-09-03 16:38 | DI ---
EXAM: Chest two-view HISTORY: Short of air COMPARISON: 11/03/2018 FINDINGS: PA and lateral views the chest were obtained. The lungs are clear. Cardiac silhouette is normal. Electronic device projects over the left chest. Cardiac monitoring leads are present. IMPRESSION: There is no acute or active cardiopulmonary process.
[2022-09-03] MEDS: COREG PO SCH (18:18)
[2022-09-03] MEDS: HUMULIN R SUBCUT PRN ×2 (18:18→21:08)
[2022-09-03] MEDS: GLUCOPHAGE PO SCH (18:19)
[2022-09-03] MEDS ORDERED: LEVEMIR SUBCUT SCH (21:00)
[2022-09-03] MEDS: ELIQUIS PO SCH (21:06)
[2022-09-03] MEDS: CARDIZEM CD PO SCH (21:06)
[2022-09-03] MEDS: LANTUS SUBCUT SCH (21:15)
[2022-09-03 22:51] LABS: CREATINE KINASE 147.1 U/L (55-170)
[2022-09-03 23:07] LABS: TROPONIN I < 0.012 ng/ml (0.0000-0.120)
[2022-09-04 05:41] LABS: BASOPHILS # (AUTO) 0.1 K/uL (0-0.2); BASOPHILS % (AUTO) 0.8 % (0.0-3.0); EOSINOPHILS # (AUTO) 0.6 K/ul (0.0-0.7); HEMATOCRIT 37.8 % (42.0-52.0); HEMOGLOBIN 12.9 g/dl (14.0-18.0); IMMATURE GRANULOCYTE % (AUTO) 0.3 % (0.0-5.0); LYMPHOCYTES # (AUTO) 1.5 K/uL (0.60-3.4); LYMPHOCYTES % (AUTO) 16.9 (10.0-50.0); MEAN CORPUSCULAR HEMOGLOBIN 31.5 pg (27.0-31.0); MEAN CORPUSCULAR HGB CONC 34.1 (31.8-35.4); MEAN CORPUSCULAR VOLUME 92.4 fl (80.0-94.0); MONOCYTES # (AUTO) 0.9 K/uL (0.4-2.0); MONOCYTES % (AUTO) 9.9 (0-10); NEUTROPHILS # (AUTO) 5.8 K/ul (2.0-6.9); NEUTROPHILS % (AUTO) 65.1 % (42.2-75.2); PLATELET COUNT 246 10^3/uL (140-440); RDW COEFFICIENT OF VARIATION 12.2 % (11.6-14.8); RED BLOOD COUNT 4.09 10^6/ul (4.70-6.10); WHITE BLOOD COUNT 8.88 K/ul (4.2-10.2)
[2022-09-04] MEDS: PROTONIX PO SCH (05:47)
[2022-09-04] MEDS: SYNTHROID PO SCH (05:47)
[2022-09-04 05:55] LABS: ALANINE AMINOTRANSFERASE 40.7 U/L (0-50); ALBUMIN 4.57 g/dL (3.5-5.0); ALKALINE PHOSPHATASE 61.1 U/L (56-119); ASPARTATE AMINO TRANSFERASE 31.3 U/L (17-59); BILIRUBIN,TOTAL 0.6 mg/dL (0.2-1.3); CALCIUM 9.42 mg/dL (8.4-10.2); CARBON DIOXIDE 31.5 mmol/L (22-30.0); CHLORIDE 98.2 mmol/L (98-107); CREATININE 0.97 mg/dL (0.60-1.10); GLUCOSE 76.4 mg/dL (74-106); POTASSIUM 3.73 mmol/L (3.5-5.1); SODIUM 136.9 mmol/L (134.5-145); TOTAL PROTEIN 7.54 g/dL (6.3-8.2)
[2022-09-04] MEDS ORDERED: LANSOPRAZOLE 30 MG PO SCH (09:00)
[2022-09-04] MEDS ORDERED: PEPCID PO SCH (09:00)
[2022-09-04] MEDS ORDERED: MULTIVIT MIN FA LYCOPEN LUTEIN PO SCH (09:00)
--- NOTE | 2022-09-04 09:43 | CT ---
EXAM: CT head without contrast 09/04/2022. Sagittal and coronal reformatted images obtained HISTORY: Ataxia COMPARISON: None. FINDINGS: There is no evidence of intracranial hemorrhage. The midline is maintained. There is no h ydrocephalus. Generalized atrophy. Chronic small vessel ischemic change. No pathologic postcontras t enhancement. No cerebellar tonsillar ectopia. Evaluation of the calvarium shows no fracture. The mastoid air cells are normally pneumatized. IMPRESSION: 1. No acute intracranial abnormality. 2. Atrophy and small vessel ischemic change. 3. No pathologic postcontrast enhancement. All CT scans are performed using dose optimization techniques as appropriate to the performed exam an d include at least one of the following: Automated exposure control, adjustment of the mA and/or kV according t o size, and the use of iterative reconstruction technique.
[2022-09-04] MEDS: GLUCOPHAGE PO SCH (09:46)
[2022-09-04] MEDS: PROSCAR PO SCH (09:47)
[2022-09-04] MEDS: MULTIVITAMIN TABLET PO SCH (09:47)
[2022-09-04] MEDS: COZAAR PO SCH (09:47)
[2022-09-04] MEDS: CARDIZEM CD PO SCH ×2 (09:47→20:17)
[2022-09-04] MEDS: PEPCID PO SCH (09:48)
[2022-09-04] MEDS: COREG PO SCH ×2 (09:48→17:12)
[2022-09-04] MEDS: LIPITOR PO SCH (09:48)
[2022-09-04] MEDS: CYMBALTA PO SCH (09:48)
[2022-09-04] MEDS: FLOMAX PO SCH (09:48)
[2022-09-04] MEDS: LANTUS SUBCUT SCH ×2 (09:50→20:20)
[2022-09-04] MEDS: ELIQUIS PO SCH ×2 (09:51→20:17)
--- NOTE | 2022-09-04 09:53 | US ---
EXAM: Bilateral carotid Doppler 09/04/2022 HISTORY: Ataxia COMPARISON: 11/05/2018 FINDINGS: Antegrade flow is present within the carotid and vertebral arteries. Duplex ultrasound in cluding chan scale, color and spectral Doppler has been performed. Patchy atherosclerotic plaque is present most prominent at the right and left carotid bulb. Peak systolic velocity right common carotid artery 72 cm/sec, right internal carotid artery 88 cm/sec . This ratio is 1.2. Peak systolic velocity left common carotid artery 92 cm/sec, left internal carotid artery 114 cm [place]. This ratio 1.2. IMPRESSION: Bilateral internal carotid stenosis remains less than 50%.
[2022-09-04] MEDS: HUMULIN R SUBCUT PRN ×3 (11:22→20:17)
--- NOTE | 2022-09-04 14:57 | HP ---
DATE OF SERVICE: 09/03/2022 REASON FOR HOSPITALIZATION/HISTORY OF PRESENT ILLNESS: Went to ER08/29/22 put on Eliquis and Cardizem. He is feeling short of breath, having palpitations, chest tightness off and on, sugar low this AM. PAST MEDICAL HISTORY: Prostate cancer, degenerative joint disease of spine, chronic kidney disease 2/3, rectal fissure, hypertension, dyslipidemia, hypothyroidism PAST SURGICAL HISTORY: Prostate, gallbladder and back surgery x2 REVIEW OF SYSTEMS: CONSTITUTIONAL: No fever, fatigue. HEENT: No sinus drainage, no sore throat. RESPIRATORY: Cough, no congestion. CARDIOVASCULAR: Palpitations, shortness of breath. GASTROINTESTINAL: No melena or abdominal pain. No GERD. GENITOURINARY: No hematuria, no prostatism, no polyuria. [employer]: No blackout, no dizziness, no headache, no double vision. MUSCULOSKELETAL: Osteoarthritis pain, no joint swelling. ENDOCRINE: No weight loss, weight gain of 4 lbs. . SKIN: Not dry, no rash. PSYCHIATRIC: Not anxious, no depression, no suicidal thoughts, no homicidal thoughts. 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 Does not smoke or use alcohol. FAMILY HISTORY: Father, . Mother, . One brother, and one sister living. MEDICATIONS: Allergy medication OTC Lipitor 20 mg daily Vitamins Prevacid 30 mg daily Levothyroxine 200 mg Flomax 0.4 mg daily Metformin 1,000 mg BID Famotidine 20 mg daily Coreg 6.25 mg BID Cymbalta 60 mg daily Losartan 50 mg daily Proscar 5 mg daily Lantus insulin 90 BID Aspirin 81 mg daily Cardizem CD 120 mg BID - given in ER 08/29/22 Eliquis 5 mg BID - given in ER 08/29/22 ALLERGIES: No known allergies PHYSICAL EXAMINATION: VITALS: Pulse 72, blood pressure 124/60, Temp 98.1, O2 sat 95%, height 5'11", weight 273, BMI 38.1 GENERAL APPEARANCE: Oriented times three. HEENT: Normal. NECK: No JVP, no bruits. RESPIRATORY: Decreased breath sounds, crepitations right lower lung. CARDIOVASCULAR: S1, S2, no S3, regular murmur. No cyanosis, clubbing. No ascites. GI/ABDOMEN: No tenderness. Bowel sounds are active. EXTREMITIES: 1+ edema left lower extremity, trace right lower extremity, pulse +1. [employer]ER: Deep tendon reflexes, sensory, motor and gait all normal. RECTAL/PELVIC/PROSTATE: Prostate - 03/29 (0.18) Dr. Maguire, colonoscopy - 2008 Dr. Noriega, refused repeat. ASSESSMENT: Shortness of breath Palpitations Chest pain Covid 08/27 Diabetes mellitus 2 History of UTI, prostatitis Rectal fissure History of hemorrhoids Chronic kidney disease, 2/3 Hypertension Dyslipidemia BPH - Dr. Maguire History of prostate cancer with TURP - Dr. Maguire Degenerative joint disease, spine Hypothyroidism Osteoporosis Fatty liver Status post back surgery Noncompliant with diet, medications and lifestyle PLAN: 1. Continue all medications under Dr. Howard. 2. Routine telemetry orders 3. NT ProBNP x1 4. Lasix 40 mg IV x1 5. Sliding scale insulin coverage 6. Continue home meds 7. 24 hour holter monitor, start now 8. Chest x-ray 9. Urinalysis 10.O2 at 1-2 liters per nasal cannula PRN 11. 2D echo 12. Continue Eliquis and Cardizem 13. Regular diet 14. Daily weight 15. No ASA 16. T4, TSH x1 17. A1C x1 TIME SPENT: More than 70 minutes. MTDD
[2022-09-05 05:05] LABS: BASOPHILS # (AUTO) 0.1 K/uL (0-0.2); EOSINOPHILS # (AUTO) 0.5 K/ul (0.0-0.7); EOSINOPHILS % (AUTO) 7.4 % (0.0-7.0); HEMATOCRIT 37.4 % (42.0-52.0); HEMOGLOBIN 12.7 g/dl (14.0-18.0); IMMATURE GRANULOCYTE % (AUTO) 0.4 % (0.0-5.0); LYMPHOCYTES # (AUTO) 1.7 K/uL (0.60-3.4); LYMPHOCYTES % (AUTO) 25.9 (10.0-50.0); MEAN CORPUSCULAR HEMOGLOBIN 31.4 pg (27.0-31.0); MEAN CORPUSCULAR VOLUME 92.3 fl (80.0-94.0); MONOCYTES # (AUTO) 0.8 K/uL (0.4-2.0); MONOCYTES % (AUTO) 12.5 (0-10); NEUTROPHILS # (AUTO) 3.6 K/ul (2.0-6.9); NEUTROPHILS % (AUTO) 52.8 % (42.2-75.2); PLATELET COUNT 207 10^3/uL (140-440); RDW COEFFICIENT OF VARIATION 12.2 % (11.6-14.8); RED BLOOD COUNT 4.05 10^6/ul (4.70-6.10); WHITE BLOOD COUNT 6.73 K/ul (4.2-10.2)
[2022-09-05 05:22] LABS: ALANINE AMINOTRANSFERASE 37.3 U/L (0-50); ALBUMIN 4.15 g/dL (3.5-5.0); ALKALINE PHOSPHATASE 59.2 U/L (56-119); ASPARTATE AMINO TRANSFERASE 35.7 U/L (17-59); BILIRUBIN,TOTAL 0.56 mg/dL (0.2-1.3); BLOOD UREA NITROGEN 16.5 mg/dL (9-20); CALCIUM 9.29 mg/dL (8.4-10.2); CARBON DIOXIDE 32.9 mmol/L (22-30.0); CHLORIDE 98.5 mmol/L (98-107); CREATININE 1.06 mg/dL (0.60-1.10); GLUCOSE 180.9 mg/dL (74-106); SODIUM 136.1 mmol/L (134.5-145)
[2022-09-05 05:30] LABS: POTASSIUM 4.08 mmol/L (3.5-5.1)
[2022-09-05] MEDS: SYNTHROID PO SCH (05:36)
[2022-09-05] MEDS: PEPCID PO SCH (05:36)
[2022-09-05] MEDS: HUMULIN R SUBCUT PRN ×4 (05:36→20:47)
[2022-09-05] MEDS: PROTONIX PO SCH (05:36)
--- NOTE | 2022-09-05 08:36 | PCM.PROG ---
Attending Provider: ATTENDING PROVIDER: Dr. LAMIN ASCENCIO MD This patient is seen with Esther Martinez, Nurse Practitioner. DATE OF SERVICE: 09/05/22 SUBJECTIVE: This 66 year old /WHITE M was hospitalized 09/03/22. Tired as usual. Per telemetry has been in sinus rhythm. Had echo yesterday. Will complete 24 hours urine this morning. REVIEW OF SYSTEMS: CONSTITUTIONAL: No night sweats. Fatigue. No fever or chills. Weakness. HEENT: Eyes: No visual changes. No eye pain. No eye discharge. ENT: No runny nose. No epistaxis. No sinus pain. No odynophagia. No congestion. RESPIRATORY: No cough, no congestion. No hemoptysis. No shortness of breath. CARDIOVASCULAR: No angina symptoms. No CHF symptoms. No atypical chest pain for CAD. No palpitations. No orthopnea.. GASTROINTESTINAL: No abdominal pain. No nausea or vomiting. No diarrhea or constipation. No hematemesis. No hematochezia. GENITOURINARY: No urgency. No frequency. No dysuria. No hematuria. No obstructive symptoms. No discharge. No pain. No significant abnormal bleeding. MUSCULOSKELETAL: No musculoskeletal pain; no joint swelling. NEUROLOGICAL: Awake, alert, oriented to time, place and person. No headache. No neck pain. No syncope. No seizures. No dizziness. PSYCHIATRIC: Not anxious. No depression. No suicidal thoughts. No homicidal thoughts. SKIN: No rash. No lesions. No wounds. ENDOCRINE: No unexplained weight loss. No weight gain. HEMATOLOGIC/LYMPHATIC: No anemia. No purpura. No petechiae. No prolonged or excessive bleeding. No palpable lymph nodes. PHYSICAL EXAMINATION: GENERAL: The patient is awake, alert and oriented, sitting in bed in no distress. VITAL SIGNS: Temperature 97.6 F, Pulse 61, Respiratory Rate 16, BP 124/56, Pulse Ox 94% HEENT: Head normocephalic, atraumatic. Eyes: Extraocular muscles are intact. Pupils are equal, round and reactive to light and accommodation. Ears: No lesions. Nose appeared normal. Throat: No exudate or erythema. NECK: Supple. No JVD, no carotid bruit. No lymphadenopathy or thyromegaly. LUNGS: Diminished breath sounds. Clear to auscultation. Percussion note normal. Chest symmetrical. HEART: S1, S2, no S3. No murmurs. Regular heart rate. No cyanosis or clubbing. No ascites. Pulses: Dorsalis pedis and posterior tibial pulses +1 to +2 both sides. ABDOMEN: Soft. Non-tender. Bowel sounds active. No CVA tenderness. No mass felt. EXTREMITIES: No edema. Full range of motion of all extremities, equal. NEUROLOGIC: No focal deficit. Cranial nerves II through XII are grossly intact. No headache. No double vision. SKIN: Not dry. Intact. Turgor-normal. LYMPHATIC: No palpable lymph nodes/no lymphedema. MUSCULOSKELETAL: Normal joints with no swelling. Muscle tone is normal. LAB REVIEW: 09/05/22 04:48 09/05/22 04:48 09/05/22 04:48: Sodium 136.1, Potassium 4.08, Chloride 98.5, Carbon Dioxide 32.9 H, Anion Gap 8.78, BUN 16.5, Creatinine 1.06, Estimated GFR (MDRD) 70.00, BUN/Creatinine Ratio 15.56, Glucose 180.9 H D, Calcium 9.29, Total Bilirubin 0.56, AST 35.7, ALT 37.3, Alkaline Phosphatase 59.2, Total Protein 7.00, Albumin 4.15, Globulin 2.85, Albumin/Globulin Ratio 1.45 09/05/22 04:48: WBC 6.73, RBC 4.05 L, Hgb 12.7 L, Hct 37.4 L, MCV 92.3, MCH 31.4 H, MCHC 34.0, RDW Coeff of [place] 12.2, Plt Count 207, Immature Gran % (Auto) 0.4, Neut % (Auto) 52.8, Lymph % (Auto) 25.9, [place] % (Auto) 12.5 H, Eos % (Auto) 7.4 H, Baso % (Auto) 1.0, Neut # (Auto) 3.6, Lymph # (Auto) 1.7, [place] # (Auto) 0.8, Eos # (Auto) 0.5, Baso # (Auto) 0.1, Immature Gran # (Auto) 0.0 ASSESSMENT: Please see below. 1. Palpitations 2. Shortness of breath 3. Fatigue 4. History of fib/flutter 5. Diabetes Mellitus type II PLAN: 1. Dobutamine stress echo sestamibi tomorrow 2. Complete 24 hour urine Plan and coordination of the patient's care discussed in the presence of [employer] Prescription Clerk and nurse. SCRIBED BY: Bhaskar CRUZ scribed while in presence of service performed by Dr. Ascencio/Esther Martinez APRN on 09/05/22 ([id number])
[2022-09-05] MEDS: MULTIVITAMIN TABLET PO SCH (09:36)
[2022-09-05] MEDS: COZAAR PO SCH (09:36)
[2022-09-05] MEDS: FLOMAX PO SCH (09:36)
[2022-09-05] MEDS: PROSCAR PO SCH (09:36)
[2022-09-05] MEDS: LIPITOR PO SCH (09:36)
[2022-09-05] MEDS: CYMBALTA PO SCH (09:36)
[2022-09-05] MEDS: COREG PO SCH ×2 (09:37→17:28)
[2022-09-05] MEDS: CARDIZEM CD PO SCH ×2 (09:37→20:46)
[2022-09-05] MEDS: ELIQUIS PO SCH ×2 (09:37→20:46)
[2022-09-05] MEDS: LANTUS SUBCUT SCH ×2 (09:39→20:48)
--- NOTE | 2022-09-05 09:45 | ECHO2D ---
Date of Exam: 09/04/2022 Ordering Physician: DR. LAMIN ASCENCIO Room #: [id number] Reason for Echo: HTN, SOB, PALPITATIONS, CHEST PAIN, ATRIAL FLUTTER M-Mode Normal Adult Results LV Dimensions Normal Adult Results AoV Opening excursions >1.6 >1.6 LVEDD-base- 3.5-5.8 4.6 Ao root dimensions 2.0-3.7 3.3 LVESD-base- 3.1-4.6 L. Atrium dimensions 1.9-3.8 4.5 Post. Wall thickness 0.8-1.1 1.2 IV septum (thickness) 0.7-1.2 1.3 Post. Wall excursion 0.72-1.3 NORMAL Septal motion NORMAL Systolic motion R. Ventricular cavity 1.5-2.0 NORMAL LVEF 60% 66% Paradoxical septal wall motion NORMAL 2-D : ENLARGED LEFT ATRIAL CAVITY--MITRAL VALVE PROLAPSE NOTED LEFT PARASTERNAL LONG AXIS AND APICAL FOUR CHAMBER VIEW--TRICUSPID VALVE, AORTIC VALVE AND PULMONARY VALVE ARE NORMAL--NORMAL LEFT VENTRICLE SIZE AND LEFT VENTRICLE CONTRACTILITY--NO EFFUSION, NO THROMBUS M-MODE: MV: MITRAL VALVE PROLAPSE LATE SYSTOLIC AV: NORMAL TV: NORMAL PV: NORMAL CHAMBER SIZE: ENLARGED LEFT ATRIAL CAVITY WALL MOTION: NORMAL PERICARDIUM: NORMAL INTERPRETATION: 1. LEFT VENTRICLE HYPERTROPHY WITH ENLARGED LEFT ATRIAL CAVITY (4.6 CM) 2. NORMAL LEFT VENTRICLE SIZE AND LEFT VENTRICLE CONTRACTILITY 3. MITRAL VALVE PROLAPSE LATE SYSTOLIC, MAYBE TRACE MITRAL REGURGITATION 4. NORMAL AORTIC, TRICUSPID AND PULMONARY VALVES, NO THROMBUS OR THROMBI MTDD
[2022-09-06 05:03] LABS: BASOPHILS # (AUTO) 0.1 K/uL (0-0.2); BASOPHILS % (AUTO) 1.1 % (0.0-3.0); EOSINOPHILS # (AUTO) 0.6 K/ul (0.0-0.7); EOSINOPHILS % (AUTO) 8.4 % (0.0-7.0); HEMATOCRIT 38.5 % (42.0-52.0); HEMOGLOBIN 12.9 g/dl (14.0-18.0); IMMATURE GRANULOCYTE % (AUTO) 0.3 % (0.0-5.0); LYMPHOCYTES # (AUTO) 1.8 K/uL (0.60-3.4); LYMPHOCYTES % (AUTO) 27.6 (10.0-50.0); MEAN CORPUSCULAR HEMOGLOBIN 30.6 pg (27.0-31.0); MEAN CORPUSCULAR HGB CONC 33.5 (31.8-35.4); MEAN CORPUSCULAR VOLUME 91.4 fl (80.0-94.0); MONOCYTES # (AUTO) 0.8 K/uL (0.4-2.0); MONOCYTES % (AUTO) 12.1 (0-10); NEUTROPHILS # (AUTO) 3.4 K/ul (2.0-6.9); NEUTROPHILS % (AUTO) 50.5 % (42.2-75.2); PLATELET COUNT 226 10^3/uL (140-440); RED BLOOD COUNT 4.21 10^6/ul (4.70-6.10); WHITE BLOOD COUNT 6.63 K/ul (4.2-10.2)
[2022-09-06 05:04] VITALS: BP 120/60; TEMP 97.9
[2022-09-06 05:14] LABS: ALANINE AMINOTRANSFERASE 44.9 U/L (0-50); ALBUMIN 4.31 g/dL (3.5-5.0); ALKALINE PHOSPHATASE 58.8 U/L (56-119); ASPARTATE AMINO TRANSFERASE 35.2 U/L (17-59); BILIRUBIN,TOTAL 0.55 mg/dL (0.2-1.3); BLOOD UREA NITROGEN 16.6 mg/dL (9-20); CALCIUM 9.45 mg/dL (8.4-10.2); CARBON DIOXIDE 27.6 mmol/L (22-30.0); CHLORIDE 101.8 mmol/L (98-107); CREATININE 1.02 mg/dL (0.60-1.10); GLUCOSE 144.4 mg/dL (74-106); POTASSIUM 4.06 mmol/L (3.5-5.1); SODIUM 135.9 mmol/L (134.5-145); TOTAL PROTEIN 7.06 g/dL (6.3-8.2)
[2022-09-06] MEDS: PROTONIX PO SCH (05:38)
[2022-09-06] MEDS: SYNTHROID PO SCH (05:38)
[2022-09-06] MEDS: PEPCID PO SCH (05:39)
[2022-09-06] MEDS: LANTUS SUBCUT SCH (08:45)
[2022-09-06] MEDS: ELIQUIS PO SCH (08:46)
[2022-09-06] MEDS: MULTIVITAMIN TABLET PO SCH (08:47)
[2022-09-06] MEDS: PROSCAR PO SCH (08:47)
[2022-09-06] MEDS: FLOMAX PO SCH (08:47)
[2022-09-06] MEDS: CYMBALTA PO SCH (08:47)
[2022-09-06] MEDS: COZAAR PO SCH (08:47)
[2022-09-06] MEDS: LIPITOR PO SCH (08:48)
[2022-09-06] MEDS: COREG PO SCH (08:48)
[2022-09-06] MEDS: CARDIZEM CD PO SCH (08:48)
--- NOTE | 2022-09-06 09:29 | PN ---
DATE OF SERVICE: 09/03/22 ADMIT NOTE SUBJECTIVE: 66 year old white male was seen in the office. Incidentally was noted to have 140-150. EKG revealed atrial flutter. The patient was sent to the emergency room, that finding was confirmed. Hypotensive at that time the patient was given Cardizem. He converted to sinus rhythm. Blood pressure systolic came up to 120-130. He was feeling better. He has been feeling tired, not much palpitation. Back pain was vague. The patient in the office had weakness and was hospitalized for further workup. The patient has been sinus rhythm. He has been on Cardizem 160mg BID. He has multiple risk factor for coronary artery disease with hypertension, dyslipidemia, diabetes mellitus type II with family history. Obesity with almost BMI close to morbid obesity. Sedentary lifestyle. REVIEW OF SYSTEMS: CONSTITUTIONAL: No night sweats. No fatigue, malaise, lethargy. No fever or chills. HEENT: Eyes: No visual changes. No eye pain. No eye discharge. ENT: No runny nose. No epistaxis. No sinus pain. No sore throat. No odynophagia. No congestion. RESPIRATORY: No cough, no congestion. No hemoptysis. No shortness of breath. CARDIOVASCULAR: No angina symptoms. No CHF symptoms. No atypical chest pain for CAD. No palpitations. No PND. No orthopnea. GASTROINTESTINAL: No abdominal pain. No nausea or vomiting. No diarrhea or constipation. No hematemesis. No hematochezia. GENITOURINARY: No urgency. No frequency. No dysuria. No hematuria. No obstructive symptoms. No discharge. No pain. No significant abnormal bleeding. MUSCULOSKELETAL: No musculoskeletal pain; no joint swelling. NEUROLOGICAL: No headache. No neck pain. No syncope. No seizures. No dizziness. PSYCHIATRIC: Not anxious. No depression. No suicidal thoughts. No homicidal thoughts. SKIN: No rash. No lesions. No wounds. ENDOCRINE: No unexplained weight loss. No weight gain. HEMATOLOGIC/LYMPHATIC: No anemia. No purpura. No petechiae. No prolonged or excessive bleeding. No palpable lymph nodes. PHYSICAL EXAMINATION: GENERAL: The patient is oriented time, place and person. HEENT: Head normocephalic, atraumatic. Eyes: Extraocular muscles are intact. Pupils are equal, round and reactive to light and accommodation. Ears: No lesions. Nose appeared normal. Throat: No exudate or erythema. NECK: Supple. No JVD, no carotid bruit. No lymphadenopathy or thyromegaly. LUNGS: Clear to auscultation. Percussion note normal. Chest symmetrical. Shortness lately more so than before. HEART: S1, S2, no S3. No murmurs. No cyanosis or clubbing. No ascites. Pulses: Dorsalis pedis and posterior tibial pulses +1 to +2 bilaterally. ABDOMEN: Soft. Nontender. Bowel sounds active. No CVA tenderness. No mass felt. EXTREMITIES: +1 pitting edema. Full range of motion of all extremities, equal. NEUROLOGIC: No focal deficit. Cranial nerves II through XII are grossly intact. No headache. No double vision. SKIN: Not dry. Intact. Turgor - normal. LYMPHATIC: No palpable lymph nodes/no lymphedema. MUSCULOSKELETAL: Normal joints with no swelling. Muscle tone is normal. LABS: BNP 144 which is normal. Cardiac marker negative. ASSESSMENT: 1. Paroxysmal atrial flutter/fib with multiple risk factor for coronary artery disease. 2. He complains of having neck pain could be related to his DJD of the spine. He has a history of DJD of L spine with status post repair many years ago. PLAN: 1. The patient is going to be workup for coronary artery disease 2. First we will make sure the patient the cardiovascular status is stable. 3. The patient's is sitting in the room. She was explained about all these findings and further workup. She is agreeable. TIME SPENT: More than 30 minutes. Plan and coordination of the patient's care discussed in the presence of nurse. SILVIA
[2022-09-06] MEDS ORDERED: ATROPINE SULFATE PFS IVP ONE (10:09)
[2022-09-06] MEDS ORDERED: DOBUTAMINE 250 MG-D5W 250 ML 250 MG/250 ML BAG IV SCH (10:15)
--- NOTE | 2022-09-06 11:02 | PN ---
DATE OF SERVICE: 09/04/22 SUBJECTIVE: 66 year old white male hospitalized with shortness of breath with chest discomfort but pain with palpitation with atrial flutter with rate of 148 which later on converted to sinus rhythm after he was given Cardizem. The patient continued to be short of breath. He luis leg edema. The patient has no signs or symptoms of CHF. PRO BNP Is practically normal 144. Cardiac markers are negative. REVIEW OF SYSTEMS: CONSTITUTIONAL: No night sweats. Fatigue. No fever or chills. HEENT: Eyes: No visual changes. No eye pain. No eye discharge. ENT: No runny nose. No epistaxis. No sinus pain. No sore throat. No odynophagia. No congestion. RESPIRATORY: No cough, no congestion. No hemoptysis. Shortness of breath. CARDIOVASCULAR: No angina symptoms. No CHF symptoms. No atypical chest pain for CAD. No palpitations. No PND. No orthopnea. GASTROINTESTINAL: No abdominal pain. No nausea or vomiting. No diarrhea or constipation. No hematemesis. No hematochezia. GENITOURINARY: No urgency. No frequency. No dysuria. No hematuria. No obstructive symptoms. No discharge. No pain. No significant abnormal bleeding. MUSCULOSKELETAL: No musculoskeletal pain; no joint swelling. Generalized aches and pain which patient has it for number of years. NEUROLOGICAL: No headache. No neck pain. No syncope. No seizures. No dizziness. PSYCHIATRIC: Not anxious. No depression. No suicidal thoughts. No homicidal thoughts. SKIN: No rash. No lesions. No wounds. ENDOCRINE: No unexplained weight loss. No weight gain. HEMATOLOGIC/LYMPHATIC: No anemia. No purpura. No petechiae. No prolonged or excessive bleeding. No palpable lymph nodes. PHYSICAL EXAMINATION: VITAL SIGNS: Temperature 96.7, pulse 60, respiratory rate 18, blood pressure 140/70 and pulse ox 94% HEENT: Head normocephalic, atraumatic. Eyes: Extraocular muscles are intact. Pupils are equal, round and reactive to light and accommodation. Ears: No lesions. Nose appeared normal. Throat: No exudate or erythema. NECK: Supple. No JVD, no carotid bruit. No lymphadenopathy or thyromegaly. LUNGS: Decreased breath sounds but clear to auscultation. Percussion note normal. Chest symmetrical. HEART: S1, S2, no S3. No murmurs. No cyanosis or clubbing. No ascites. Pulses: Dorsalis pedis and posterior tibial pulses +1 to +2 bilaterally. ABDOMEN: Soft. Nontender. Bowel sounds active. No CVA tenderness. No mass felt. EXTREMITIES: No edema. Full range of motion of all extremities, equal. NEUROLOGIC: No focal deficit. Cranial nerves II through XII are grossly intact. No headache. No double vision. SKIN: Not dry. Intact. Turgor - normal. LYMPHATIC: No palpable lymph nodes/no lymphedema. MUSCULOSKELETAL: Normal joints with no swelling. Muscle tone is normal. LABS: Hgb 12.9, hct 37, WBC 8,800 normal differential, creatinine 0.9, BUN 14, potassium 3.7. TSH normal. cardiac markers are negative. EKG sinus rhythm. NO acute changes. Echo done today showed LVH with enlarged LA cavity 4.6, mitral valve prolapse noted maybe trace mitral regurgitation. CONDITION: Stable ASSESSMENT: 1. Shortness of breath could be multifactorial with almost morbid obesity with sedentary lifestyle 2. Coronary artery disease needs to be ruled out. 3. Atrial flutter/fib with rate of 145 per minute, didn't have the patient going into any acute myocardial event. Cardiac markers were negative immediately after that then he converted to sinus rhythm. PLAN: 1. Carotid scan and CT scan of the head done, reports pending. 2. The patient has been explained about coronary artery disease and the risk factors and how to modify them. Cardiovascular status is stable. 3. Continue Cardizem and Losartan 4. Continue insulin A1c more than 8. Explained about A1c to be between 6-7 would be the ideal 5. Foot care and eye care discussed with the patient. 6. Refuses to go to bariatric center 7. Refuses dietary consult. CONDITION: Stable TIME SPENT: More than 30 minutes. Plan and coordination of the patient's care discussed in the presence of nurse. SILVIA
[2022-09-06] MEDS: HUMULIN R SUBCUT PRN (12:38)
--- NOTE | 2022-09-10 10:14 | DOBSTECHST ---
Ordering Physician: DR. LAMIN ASCENCIO Date of Test: 09/06/2022 Reason for Examination: CHEST PAIN, SOB Smoking History: NONE Height: 71" Weight: 272 LBS Current Medications: CYMBALTA, METFORMIN, SYNTHROID, PREVACID, LIPITOR, TAMSULOSIN, ELIQUIS, CARDIZEM, LOSARTAN, CARVEDILOL, LANTUS, FAMOTIDINE Target Heart Rate: 130/153 S-T Segment Stage Time HR BPM BP MMHG Rhythm +/- Elevation Depression Symptoms Control Sitting 60 150/62 SR X NONE Dobutamine 250mg/D5W 5mcg/KG/mn 10mcg/KG/mn 3" 67 134/70 SR X NONE 15mcg/KG/mn 2" 67 154/68 SR X NONE 20mcg/KG/mn 2" 68 SR X NONE 25mcg/KG/mn 3" 69 160/62 SR X NONE 30mcg/KG/mn 3" 79 SR X ATROPINE .25 35mcg/KG/mn 2" 88 166/54 SR X NONE 40mcg/KG/mn 1:19 80 2" MIN POST INFUSION 75 160/54 SR X NONE 5" MIN POST INFUSION 10" 76 68 146/52 136/58 SR SR X X NONE NONE DURATION OF INFUSION 16:15 MAXIMUM HEART RATE REACHED 88 BPM Interpretation: 1. NO EVIDENCE OF ISCHEMIA BY ST-T WAVE FROM HEART RATE 60 BPM RESTING TO 90 BPM WITH DOBUTAMINE INFUSION AND ATROPINE 2. NO CHEST PAIN OR DISCOMFORT 3. NO ARRHYTHMIAS NORMAL LEFT VENTRICLE CONTRACTILITY--RESTING AND WITH DOBUTAMINE INFUSION SESTAMIBI TO FOLLOW MTDD
--- NOTE | 2022-09-10 10:17 | ECHOSTRESS ---
Date of Exam: 09/06/2022 Ordering Physician: DR. LAMIN ASCENCIO Reason for Echo: CHEST PAIN, SOB M-Mode Normal Adult Results LV Dimensions Normal Adult Results AoV Opening excursions >1.6 LVEDD-base- 3.5-5.8 Ao root dimensions 2.0-3.7 LVESD-base- 3.1-4.6 L. Atrium dimensions 1.9-3.8 Post. Wall thickness 0.8-1.1 IV septum (thickness) 0.7-1.2 Post. Wall excursion 0.72-1.3 Septal motion Systolic motion R. Ventricular cavity 1.5-2.0 LVEF 60% Paradoxical septal wall motion 2-D: NORMAL LEFT VENTRICLE CONTRACTILITY--RESTING AND WITH DOBUTAMINE INFUSION M-MODE: MV: AV: TV: PV: CHAMBER SIZE: WALL MOTION: NORMAL LEFT VENTRICLE CONTRACTILITY--RESTING AND WITH DOBUTAMINE INFUSION PERICARDIUM: INTERPRETATION: 1. NORMAL LEFT VENTRICLE CONTRACTILITY--RESTING AND WITH DOBUTAMINE INFUSION MTDD
--- NOTE | 2022-09-10 10:21 | HOLTER ---
PATIENT INFORMATION AND COMMENTS Attending Physician: DR. LAMIN ASCENCIO Indications: CHEST PAIN, SOB __ Patient Medications: ASA, CYMBALTA, METFORMIN, SYNTHROID, PREVACID, LIPITOR, TAMSULOSIN, ELIQUIS, CARDIZEM, LOSARTAN, CARVEDILOL, LANTUS __ Pre-procedure Summary: Protocol: Standard Heart Rate Started: 09/03/2022 Minimum: 53 BPM Weight: 272 LBS Ended: 09/04/2022 Maximum: 95 BPM Height: 71" Duration: 24 HOURS Average: 66 BPM _ INTERPRETATIONS/OBSERVATIONS: 1. BASIC RHYTHM: SINUS, RATE 53 BPM TO 95 BPM, AVERAGE 66 BPM 2. RARE PVC'S AND PAC'S 3. NO PAUSES GREATER THAN 2.[address]-T WAVE CHANGES FROM BASELINE MTDD
--- NOTE | 2022-09-10 13:28 | NM ---
Cardiac Stress Test HISTORY: Chest pain. Shortness of breath. COMPARISON: 03/01/2015. TECHNIQUE: Resting: The patient was injected with 12 millicuries of 99m Tc Sestamibi (Cardiolite) intravenously after which a "resting" SPECT study of the heart was performed. Stress: The patient was stressed pharmacologically with dobutamine and at the appropriate time injec charles with 31.2 millicuries of 99m Tc Sestamibi (Cardiolite) intravenously after which a "stress" SPEC T study of the heart was performed. Gated images of the heart were also obtained to assess wall endy on and calculate ejection fraction. For details of the stress protocol employed, reference is made t o the separate report of the performing physician. FINDINGS: The stress perfusion images demonstrate a generally uniform distribution of activity in th e left ventricular myocardium. The resting perfusion images demonstrate no evidence of significant redistribution/ischemia. The left ventricular ejection fraction (LVEF) is 58%. The previous ejection fraction was 58%. IMPRESSION: 1. Left ventricular myocardial perfusion demonstrates no evidence of significant reperfusion/ischemi a. 2. The left ventricular ejection fraction (LVEF) is 58%. Note: This study was initially put on hold and the question regarding the computer results. Today i s first day that a technologist was available to resolve this issue.
--- NOTE | 2022-09-10 14:44 | PN ---
DATE OF SERVICE: 09/05/22 SUBJECTIVE: Patient was seen and examined today with the nurse practitioner. The patient's condition is stable and is improving. Education carried out about diabetes mellitus and its complication. Check up advised yearly. Patient was advised colonoscopy but is declining for now.. Also coronary artery disease risk factors discussed and how to modify them. Patient is overweight and morbidly obese. I discussed with him to be careful and he declined. REVIEW OF SYSTEMS: CONSTITUTIONAL: No night sweats. No fatigue, malaise, lethargy. No fever or chills. HEENT: Eyes: No visual changes. No eye pain. No eye discharge. ENT: No runny nose. No epistaxis. No sinus pain. No sore throat. No odynophagia. No congestion. RESPIRATORY: No cough, no congestion. No hemoptysis. No shortness of breath. CARDIOVASCULAR: No angina symptoms. No CHF symptoms. No atypical chest pain for CAD. No palpitations. No PND. No orthopnea. GASTROINTESTINAL: No abdominal pain. No nausea or vomiting. No diarrhea or constipation. No hematemesis. No hematochezia. GENITOURINARY: No urgency. No frequency. No dysuria. No hematuria. No obstructive symptoms. No discharge. No pain. No significant abnormal bleeding. MUSCULOSKELETAL: No musculoskeletal pain; no joint swelling. NEUROLOGICAL: No headache. No neck pain. No syncope. No seizures. No dizziness. PSYCHIATRIC: Not anxious. No depression. No suicidal thoughts. No homicidal thoughts. SKIN: No rash. No lesions. No wounds. ENDOCRINE: No unexplained weight loss. No weight gain. HEMATOLOGIC/LYMPHATIC: No anemia. No purpura. No petechiae. No prolonged or excessive bleeding. No palpable lymph nodes. PHYSICAL EXAMINATION: GENERAL: The patient is in no distress. HEENT: Head normocephalic, atraumatic. Eyes: Extraocular muscles are intact. Pupils are equal, round and reactive to light and accommodation. Ears: No lesions. Nose appeared normal. Throat: No exudate or erythema. NECK: Supple. No JVD, no carotid bruit. No lymphadenopathy or thyromegaly. LUNGS: Clear to auscultation. Percussion note normal. Chest symmetrical. HEART: S1, S2, no S3. No murmurs. No cyanosis or clubbing. No ascites. Pulses: Dorsalis pedis and posterior tibial pulses +1 to +2 bilaterally. ABDOMEN: Soft. Nontender. Bowel sounds active. No CVA tenderness. No mass felt. EXTREMITIES: No edema. Full range of motion of all extremities, equal. NEUROLOGIC: No focal deficit. Cranial nerves II through XII are grossly intact. No headache. No double vision. SKIN: Not dry. Intact. Turgor - normal. LYMPHATIC: No palpable lymph nodes/no lymphedema. MUSCULOSKELETAL: Normal joints with no swelling. Muscle tone is normal. TIME SPENT: More than 30 minutes. Plan and coordination of the patient's care discussed in the presence of nurse. SILVIA
--- NOTE | 2022-09-10 17:09 | DS ---
DATE OF SERVICE: 09/06/22 SUBJECTIVE: This is a 66 year old white male hospitalized with shortness of breath, some chest discomfort. The patient's condition seems to have improved. During the stay in the hospital the patient has been in sinus rhythm, no tachyarrhythmias of any kind noted. The patient had dobutamine stress echo done today which did not show any evidence of ischemia with heart rate from 60 up to 90 with dobutamine and atropine. The patient's carotid scan had been unremarkable. CT scan of the head did not show any old infarct or new findings. REVIEW OF SYSTEMS: CONSTITUTIONAL: No night sweats. Fatigue, tired feeling and sleepy. No fever or chills. HEENT: Eyes: No visual changes. No eye pain. No eye discharge. ENT: No runny nose. No epistaxis. No sinus pain. No sore throat. No odynophagia. No congestion. RESPIRATORY: No cough, no congestion. No hemoptysis. No shortness of breath. CARDIOVASCULAR: No angina symptoms. No CHF symptoms. No atypical chest pain for CAD. No palpitations. No PND. No orthopnea. GASTROINTESTINAL: No abdominal pain. No nausea or vomiting. No diarrhea or constipation. No hematemesis. No hematochezia. GENITOURINARY: No urgency. No frequency. No dysuria. No hematuria. No obstructive symptoms. No discharge. No pain. No significant abnormal bleeding. MUSCULOSKELETAL: No musculoskeletal pain; no joint swelling. NEUROLOGICAL: No headache. No neck pain. No syncope. No seizures. No dizziness. PSYCHIATRIC: Not anxious. No depression. No suicidal thoughts. No homicidal thoughts. SKIN: No rash. No lesions. No wounds. ENDOCRINE: No unexplained weight loss. No weight gain. HEMATOLOGIC/LYMPHATIC: No anemia. No purpura. No petechiae. No prolonged or excessive bleeding. No palpable lymph nodes. PHYSICAL EXAMINATION: GENERAL: The patient is in no distress. VITAL SIGNS: Temperature 97.9, pulse 58, respiratory rate 18, blood pressure 120/60, pulse ox 95% HEENT: Head normocephalic, atraumatic. Eyes: Extraocular muscles are intact. Pupils are equal, round and reactive to light and accommodation. Ears: No lesions. Nose appeared normal. Throat: No exudate or erythema. NECK: Supple. No JVD, no carotid bruit. No lymphadenopathy or thyromegaly. LUNGS: Decreased breath sounds, clear. Percussion note normal. Chest symmetrical. HEART: S1, S2, no S3. No murmurs. No cyanosis or clubbing. No ascites. Pulses: Dorsalis pedis and posterior tibial pulses +1 to +2 bilaterally. ABDOMEN: Soft. Nontender. Bowel sounds active. No CVA tenderness. No mass felt. EXTREMITIES: No edema. Full range of motion of all extremities, equal. NEUROLOGIC: No focal deficit. Cranial nerves II through XII are grossly intact. No headache. No double vision. SKIN: Not dry. Intact. Turgor - normal. LYMPHATIC: No palpable lymph nodes/no lymphedema. MUSCULOSKELETAL: Normal joints with no swelling. Muscle tone is normal. LABS: Hemoglobin 12.9, hematocrit 38, WBC 6,600, normal differential, creatinine 1, BUN 16, potassium 4. Patient's atrial flutter resolved, during the stay in the hospital the patient did not have any episodes of fibrillation. His Holter monitor didn't show any atrial fibrial flutter. Dobutamine stress echo was negative for ischemia. Sestamibi report pending. Patient's wants him to be switched to the same insurance she is on but this cannot be done on his hospital follow up visit. Carotid scan less than 50%, CT scan showed no active findings, no stroke which was done for ataxia. Dobutamine stress echo is negative for ischemia from a heart rate of 60-90 with dobutamine and atropine report pending at the time of discharge. During the stay in the hospital the patient had sinus rhythm with pauses of more than two seconds. Holter monitor shows sinus rhythm with PVC, PAC but no atrial fib flutter noted. PLAN: 1. Patient is advised to continue all medicines as before 2. New medicines - Cardizem CD 120 mg BID, Losartan to 25 mg PO daily, Eliquis 5 mg twice a day - side effects discussed and advised not to take any nonsteroidal anti-inflammatories 3. Discontinue aspirin 4. Patient was consulted on weight loss diet FINAL DIAGNOSIS: 1. Paroxysmal atrial flutter 2. Diabetes mellitus, insulin dependent 3. Morbid obesity 4. Sleep apnea, patient is to undergo sleep study and will be scheduled for home sleep study as an out patient 5. Shortness of breath 6. Palpitations 7. Chest pain 8. Covid 08/27 9. History of UTI, prostatitis 10. Rectal fissure 11. History of hemorrhoids 12. Chronic kidney disease, 2/3 13. Hypertension 14. Dyslipidemia 15. BPH - Dr. Maguire 16. History of prostate cancer with TURP - Dr. Maguire 17. Degenerative joint disease, spine 18. Hypothyroidism 19. Osteoporosis 20. Fatty liver 21. Status post back surgery 22. Noncompliant with diet, medications and lifestyle MEDICATIONS AT DISCHARGE: Cardizem CD 120 PO twice a day Eliquis 5 mg twice a day Losartan to be decreased to 25 mg PO daily Continue the rest of the medications as before DISCONTINUED MEDICATIONS: Aspirin HOSPITAL COURSE: This is a 66 year old white male hospitalized after experiencing palpitations. The patient had atrial flutter which was incidental finding during the office visit. On further questioning, he said that he may be feeling some palpitations. His main problem was shortness of breath which has increased lately. The patient also has sleep apnea for which he has doesn't done anything about. He had a sleep study done several years ago and is almost morbidly obese. He was consulted for obesity but was declined. Further discussed with him his score was 3. Patient's echocardiogram showed LVH with enlarged LA cavity. No thrombus or thrombi noted. Mitral valve prolapse noted with trace mitral regurg. Dobutamine stress echo negative for ischemia. Sestamibi report pending. The patient was put on Cardizem CD on the emergency visit which was continued. Losartan was decreased to 25 mg and the rest of the medications were continued except for baby aspirin which was a new medication which was started in the emergency room. Side effects of Eliquis discussed and advised to not take any nonsteroidal anti-inflammatories. He will undergo 30 day even monitor. Within the next few months if he doesn't show any atrial flutter or fib he may be safely taken off Eliquis because this is the first time noted to have an episode of atrial flutter fib. During his hospital stay the patient did not have any evidence along with the Holter monitor done that didn't show any evidence of atrial flutter or fib. The patient at the time of discharge is stable. Patient is DNR 09/03/22 level 5 09/04/22 extensive 09/05/22 intermediate 09/06/22 discharge TIME SPENT: More than 60 minutes. SILVIA
[2022-09-11 08:44] LABS: TOTAL PROTEIN URINE 4.7
[2022-09-11 08:48] LABS: URINE ALBUMIN 52.5; URINE ALPHA-1 GLOBULIN 7.2; URINE ALPHA-2 GLOBULIN 14.3
[2022-09-11 08:49] LABS: % M-SPIKE NOT OBSERVED; URINE BETA GLOBULIN 18.4; URINE GAMMA GLOBULIN 7.6
== END 2022-09-06 13:55 | disposition home or self-care (01) | DRG 204 ==
LOC: LAB 12:22 → MEDSURG A 13:43
PROVIDERS: ADMIT Internal Medicine; ATTEND Internal Medicine
DX: E03.9 Hypothyroidism, unspecified; M51.36 Other intervertebral disc degeneration, lumbar region; Z51.81 Encounter for therapeutic drug level monitoring; Z79.899 Other long term (current) drug therapy; Z79.84 Long term (current) use of oral hypoglycemic drugs; Z79.4 Long term (current) use of insulin; Z86.16 Personal history of COVID-19; I10 Essential (primary) hypertension; R07.9 Chest pain, unspecified; E78.5 Hyperlipidemia, unspecified; E66.01 Morbid (severe) obesity due to excess calories; R06.02 Shortness of breath; R00.2 Palpitations; Z79.01 Long term (current) use of anticoagulants; I48.0 Paroxysmal atrial fibrillation; M54.2 Cervicalgia; Z85.46 Personal history of malignant neoplasm of prostate; Z20.822 Contact with and (suspected) exposure to COVID-19; E11.22 Type 2 diabetes mellitus with diabetic chronic kidney disease; N18.30 Chronic kidney disease, stage 3 unspecified